=== PATIENT | male | born 1985 | race Caucasian/White ===

== ENCOUNTER 2021-02-05 12:34 | Emergency (ER) | payer OTHER ==
[~2021-02-05] VITALS: Ht 177.8 cm; Wt 79.4 kg
[2021-02-05 12:41] VITALS: BP 121/75
--- NOTE | 2021-02-05 12:49 | NUR ---
PATIENT AMBULATED TO BED 6.
--- NOTE | 2021-02-05 13:16 | NUR ---
35 YEAR OLD MALE COMPLAINS OF CHEST PRESSURE X 2 WEEKS. PT STATES IT IS WORSE TODAY, AND FEELS LIGHT HEADED. PT STATES THAT HE HAS SEEN HIS DOCTOR FOR THIS AND HAD REVEALED EJECTION FRACTION < 40%. PT STATES SOME NAUSEA. PT AOX4, BREATHING EVEN AND UNLABORED, SKIN WARM AND DRY. BED IN LOWEST POSITION, LOCKED, BED RAIL UPX1. PMH - DENIES ALLERGIES - NKA
--- NOTE | 2021-02-05 13:27 | NUR ---
Patient being evaluated by SHELLY at bedside.
--- NOTE | 2021-02-05 13:45 | NUR ---
Patient discharged with v/s stable. Written and verbal after care instructions about chest pain given and explained. Patient verbalized understanding. Ambulatory with steady gait. All questions addressed prior to discharge. Advised to follow up with PMD.
[2021-02-05 13:46] VITALS: BP 150/81
== END 2021-02-05 13:45 | disposition home or self-care (01) ==
LOC: MED 12:34
DX: R07.9 Chest pain, unspecified (principal); R42 Dizziness and giddiness; R11.0 Nausea; I50.9 Heart failure, unspecified; Z88.8 Allergy status to other drugs, medicaments and biological substances
CPT/HCPCS: 81002; 93005; 99283